=== PATIENT | male | born 2000 | race Caucasian/White ===

== ENCOUNTER 2018-12-02 20:21 | Emergency (ER) | payer BC, SELFPAY ==
--- NOTE | 2018-12-02 20:28 | XR_ITS ---
XR ankle LT min 3V HISTORY: ITS.REASON: Pain and swelling ORDERING PHYSICIAN: ALFONSO Sarabia PATIENT AGE: 18 years Comparison: None FINDINGS: No fracture or dislocation. No lytic or blastic change. There is normal mineralization.. The joint spaces are well-preserved. No significant degenerative/arthritic changes. No erosive changes evident. IMPRESSION: Negative ankle, no acute finding
[2018-12-02 21:00] VITALS: BP 131/84; PULSE 73; RESP 18; TEMP 36.6; O2SAT 100; BMI 19.4
--- NOTE | 2018-12-02 21:57 | HMH.EDUTC ---
[facility] [place] Disposition Clinical Impression: Ankle sprain Qualifiers: Encounter type: initial encounter Involved ligament of ankle: unspecified ligament Laterality: left Qualified Code(s): S93.402A - Sprain of unspecified ligament of left ankle, initial encounter Disposition: Home, Self-Care Condition on Discharge: Good Instructions: How To Perform RICE (Rest, Ice, Compress, Elevate), DI for Ankle Sprain, Ankle Sprain, How to Use Crutches, How to Use a Walking Boot Additional Instructions: *RICE, Rest the extremity, Ice 15-20 minutes 3-4 times daily, Compress- wear the fabian wrap as discussed as much as possible to help reduce swelling and pain, Elevate the extremity when at rest *Fabian wrap is for support and help control swelling, use it except in the shower. Be sure that is not to tight but not to loose either *Elevate when resting *Ibuprofen 600-800mg every 6-8 hours as needed for pain an inflammation. If need something more can take Tylenol in between doses of Ibuprofen to help Immediately follow up with your family doctor for new or worsening of symptoms, or no noticeable improvement over the next 3-5 days Call [facility] in the morning for official Radiology reading of your xray Follow up with Dr Garcia if pain continues Return if needed Referrals: Cj Ramirez [Primary Care Provider] - As needed Brenda Garcia DPM [Staff Physician] - Forms: Work/School Release Time of Disposition: 22:06 Medical Decision Making - Adi Inquiry Pt receiving controlled substance: No Adi was queried for this patient: No Vital Signs: 12/02/18 21:00 Temperature 97.9 F Temperature Source Oral Pulse Rate [Right Apical] 73 Respiratory Rate 18 Blood Pressure [Right Arm] 131/84 Blood Pressure Mean [Right Arm] 99 02 Sat by Pulse Oximetry 100 Oxygen Delivery Method Room Air Orders (Tests/Meds): ORDERS Category Date Time Status XR ankle LT min 3V Stat Exams 12/02/18 20:28 Taken - Radiology Data #1 Image(s): Ankle Image Reviewed: Yes I reviewed the patient's radiology image Preliminary Findings: No Fracture Seen No acute finding, will place in boot splint and have patient follow up with Dr Garcia [facility] [place] HPI - General Stated complaint: L ankle swollen, pain Time Seen by Provider: 12/02/18 21:57 Mode of Arrival: Ambulatory Source of Information: Patient Limitations: No Limitations Description of Symptoms (Recalled from Triage Doc. by RN): PT C/O ANKLE PAIN HEENT Symptoms (Recalled from RN notes): No Resp Symptoms (Recalled from RN notes): No Skin Symptoms (Recalled from RN notes): No MS Symptoms (Recalled from RN notes): Yes Functional Status (Recalled from RN notes): N/A - History of Present Illness Provider Complaint: Patient state that he is having pain in his left ankle States that he twisted his left ankle a couple weeks ago and then twisted it again on Sunday and ever since has been having pain in the left ankle when he walks on it and swelling with bruising on the bottom of foot - Related Data Home Medications Medication Instructions Recorded Confirmed No Known Home Medications 01/28/18 01/28/18 Allergies Allergy/AdvReac Type Severity Reaction Status Date / Time No Known Allergies Allergy Verified 01/28/18 01:55 - Worker's Comp Is this a Worker's Comp case?: No [facility] History - Hepatitis A Screen Drug use history?: No High risk sexual behaviors?: No History of sexually transmitted infection?: No Currently employed?: No Childcare worker?: No Do you have indoor plumbing?: Yes Do you have electricity?: Yes Attestation statement:: This patient has been screened for Hepatitis A risk factors. I have reviewed the patient's past medical history: Yes - Social History Smoking Status: Current every day smoker Tobacco Type: cigarettes Alcohol Intake: never Alcohol Intake Frequency:: holidays/special occasions only Substance Use Type: marijuana Occupational Status: employed - Psych[employer]
[2018-12-02 21:59] VITALS: BP 126/66; PULSE 65; RESP 18; TEMP 36.6; O2SAT 100
--- NOTE | 2018-12-02 22:01 | ED_ITS ---
[facility] [place] [facility] [place] Clinical Impression: Ankle sprain Qualifiers: Encounter type: initial encounter Involved ligament of ankle: unspecified ligament Laterality: left Qualified Code(s): S93.402A - Sprain of unspecified ligament of left ankle, initial encounter Disposition: Home, Self-Care Condition on Discharge: Good Instructions: How To Perform RICE (Rest, Ice, Compress, Elevate), DI for Ankle Sprain, Ankle Sprain, How to Use Crutches, How to Use a Walking Boot Additional Instructions: *RICE, Rest the extremity, Ice 15-20 minutes 3-4 times daily, Compress- wear the fbaian wrap as discussed as much as possible to help reduce swelling and pain, Elevate the extremity when at rest *Fbaian wrap is for support and help control swelling, use it except in the shower. Be sure that is not to tight but not to loose either *Elevate when resting *Ibuprofen 600-800mg every 6-8 hours as needed for pain an inflammation. If need something more can take Tylenol in between doses of Ibuprofen to help Immediately follow up with your family doctor for new or worsening of symptoms, or no noticeable improvement over the next 3-5 days Call [facility] in the morning for official Radiology reading of your xray Follow up with Dr Garcia if pain continues Return if needed Referrals: Cj Ramirez [Primary Care Provider] - As needed Brenda Garcia DPM [Staff Physician] - Forms: Work/School Release Time of Disposition: 22:06 Medical Decision Making - Adi Inquiry Pt receiving controlled substance: No Adi was queried for this patient: No Vital Signs: 12/02/18 21:00 Temperature 97.9 F Temperature Source Oral Pulse Rate [Right Apical] 73 Respiratory Rate 18 Blood Pressure [Right Arm] 131/84 Blood Pressure Mean [Right Arm] 99 02 Sat by Pulse Oximetry 100 Oxygen Delivery Method Room Air Orders (Tests/Meds): ORDERS Category Date Time Status XR ankle LT min 3V Stat Exams 12/02/18 20:28 Taken - Radiology Data #1 Image(s): Ankle Image Reviewed: Yes I reviewed the patient's radiology image Preliminary Findings: No Fracture Seen No acute finding, will place in boot splint and have patient follow up with Dr Garcia [facility] [place] [facility] [place]PI - General Stated complaint: L ankle swollen, pain Time Seen by Provider: 12/02/18 21:57 Mode of Arrival: Ambulatory Source of Information: Patient Limitations: No Limitations Description of Symptoms (Recalled from Triage Doc. by RN): PT C/O ANKLE PAIN HEENT Symptoms (Recalled from RN notes): No Resp Symptoms (Recalled from RN notes): No Skin Symptoms (Recalled from RN notes): No MS Symptoms (Recalled from RN notes): Yes Functional Status (Recalled from RN notes): N/A - History of Present Illness Provider Complaint: Patient state that he is having pain in his left ankle States that he twisted his left ankle a couple weeks ago and then twisted it again on Sunday and ever since has been having pain in the left ankle when he walks on it and swelling with bruising on the bottom of foot - Related Data Home Medications Medication Instructions Recorded Confirmed No Known Home Medications 01/28/18 01/28/18 Allergies Allergy/AdvReac Type Severity Reaction Status Date / Time No Known Allergies Allergy Verified 01/28/18 01:55
== END 2018-12-02 22:13 | disposition home or self-care (01) ==
PROVIDERS: Emergency Provider Physician Assistant; PCP Family Medicine
DX: S93.402A Sprain of unspecified ligament of left ankle, initial encounter (principal); X50.1XXA Overexertion from prolonged static or awkward postures, initial encounter; Y92.019 Unspecified place in single-family (private) house as the place of occurrence of the external cause; F17.210 Nicotine dependence, cigarettes, uncomplicated
CPT/HCPCS: 29515; 73610; 99203

== ENCOUNTER 2020-09-29 14:08 | Emergency (ER) | payer BC, SELFPAY ==
[2020-09-29 14:25] VITALS: BP 157/98; PULSE 75; RESP 14; TEMP 36.6; O2SAT 98; BMI 22.8
--- NOTE | 2020-09-29 14:29 | HMH.EDUTC ---
[facility] [place] Disposition Clinical Impression: Encounter for laboratory testing for COVID-19 virus Disposition: Home, Self-Care Condition on Discharge: Good Instructions: DI for COVID-19 (Suspected or Confirmed ), Coronavirus Disease 2019, Preventing the Spread of Coronavirus Discharge Instructions Additional Instructions: You were tested for today for COVID19 your test result should be back in the next 24-48 hours, you may call to the [facility] to see if your test results are back in the next 48 hours [phone] [facility] hours are 9am-9pm You was given a handout with instructions for Self Quarantine and Self isolation for while you wait on test results and what to do if they are positive If you are positive the Health Dept will be contacting you also Referrals: Cj Ramirez [Primary Care Provider] - As needed Time of Disposition: 14:31 Medical Decision Making - Adi Inquiry Pt receiving controlled substance: No Adi was queried for this patient: No Vital Signs: 09/29/20 14:25 Temperature 98 F Temperature Source Tympanic Pulse Rate [Right] 75 Respiratory Rate 14 Blood Pressure [Right Arm] 157/98 H Blood Pressure Mean [Right Arm] 117 Blood Pressure Source [Right Arm] Automatic Cuff Blood Pressure Position [Right Arm] Sitting 02 Sat by Pulse Oximetry 98 Oxygen Delivery Method Room Air [facility] [place] HPI - General Stated complaint: wants covid test Time Seen by Provider: 09/29/20 14:29 Mode of Arrival: Ambulatory Source of Information: Patient Limitations: No Limitations Description of Symptoms (Recalled from Triage Doc. by RN): pt needs a covid test bc he is checking himself into rehab on sunday. HEENT Symptoms (Recalled from RN notes): No Resp Symptoms (Recalled from RN notes): No Skin Symptoms (Recalled from RN notes): No MS Symptoms (Recalled from RN notes): No Functional Status (Recalled from RN notes): na - History of Present Illness Provider Complaint: Patient states that he is checking himself into rehab on Sunday and they wanted him to have a COVID test prior to arriving at the facility Denies known exposure and denies any symptoms - Related Data Previous Rx's Medication Instructions Recorded ondansetron 8 mg disintegrating 8 mg PO Q8H PRN #7 tab 06/01/19 tablet Allergies Allergy/AdvReac Type Severity Reaction Status Date / Time No Known Allergies Allergy Verified 06/01/19 12:19 - Worker's Comp Is this a Worker's Comp case?: No [facility] History - Hepatitis A Screen Drug use history?: No High risk sexual behaviors?: No History of sexually transmitted infection?: No Currently employed?: No Childcare worker?: No Do you have indoor plumbing?: Yes Do you have electricity?: Yes Attestation statement:: This patient has been screened for Hepatitis A risk factors. I have reviewed the patient's past medical history: Yes - Social History Smoking Status: Current every day smoker Tobacco Type: cigarettes Alcohol Intake: never Alcohol Intake Frequency:: holidays/special occasions only Substance Use Type: marijuana Occupational Status: employed ROS Obtained: Yes All systems reviewed & no additional complaints, Yes Systems reviewed as appropriate & no additional complaints - Constitutional Constitutional: Reports system reviewed and no additional complaints, except as docu, Denies fever(s), Denies headache(s) - ENT Ears, Nose, Mouth, and Throat: Reports system reviewed and no additional complaints, except as docu, Denies nasal congestion, Denies nasal discharge, Denies sore throat - Cardiovascular Cardiovascular: Reports system reviewed and no additional complaints, except as docu - Respiratory Respiratory: Reports system reviewed and no additional complaints, except as docu, Denies dyspnea - Gastrointestinal Gastrointestingal: Reports: system reviewed and no additional complaints, except as docu Physical Exam - General General appearance: alert, in no apparent distress - ENT ENT exam: Pr
[2020-09-29 14:34] VITALS: BP 152/95; PULSE 70; RESP 16; TEMP 36.6
== END 2020-09-29 14:36 | disposition home or self-care (01) ==
PROVIDERS: Emergency Provider Nurse Practitioner; PCP Family Medicine
DX: Z20.822 Contact with and (suspected) exposure to COVID-19 (principal); F17.210 Nicotine dependence, cigarettes, uncomplicated
CPT/HCPCS: 99202; G0463; U0003